=== PATIENT | female | born 1960 | race Caucasian/White ===

== ENCOUNTER 2019-10-31 07:30 | Inpatient (IN) ==
[2019-10-24 20:02] LABS: Basophils # (Auto) 0.1 K/mcL (0.0-0.3); Basophils % (Auto) 0.5 % (0.0-2.0); Eosinophils # (Auto) 0.2 K/mcL (0.0-0.7); Eosinophils % (Auto) 2.4 % (0.0-7.0); Granulocytes % (Auto) 65.8 % (38.0-78.0); Hematocrit 41.1 % (36.0-48.0); Hemoglobin 13.7 g/dL (12.0-15.0); Lymphocytes # (Auto) 2.6 K/mcL (1.5-4.8); Lymphocytes % (Auto) 25.8 % (15.5-49.0); Mean Cell Volume 89.3 fL (80.0-100.0); Mean Corpuscular HGB Conc 33.4 g/dL (31.0-36.0); Mean Platelet Volume 8.5 fL (7.4-10.4); Monocytes # (Auto) 0.5 K/mcL (0.1-0.9); Monocytes % (Auto) 5.5 % (1.0-12.0); Platelet Count 292 K/mcL (140-440); Red Cell Distribution Width 13.6 % (11.5-14.5); WBC 9.9 K/mcL (4.5-11.0)
[2019-10-24 20:23] LABS: Appearance,Urine CLEAR; Bilirubin,Urine NEG (NEG); Color,Urine STRAW; Glucose,Urine (UA) NEGATIVE (NEG); Ketones,Urine NEG (NEG); Leukocyte Esterase,Urine NEG /uL (NEG); Nitrate,Urine NEG (NEG); Protein,Urine NEG (NEG); Specific Gravity,Urine 1.006 (1.000-1.035); Urine Blood NEG mg/dL (<0.03); Urobilinogen,Urine NEG (NEG)
[2019-10-24 20:25] LABS: Blood Urea Nitrogen 11 mg/dl (6-20); Calcium 9.4 mg/dl (8.6-10.4); Carbon Dioxide 28 mmol/L (22-30); Chloride 98 mmol/L (96-108); Glomerular Filtration Rate 70; Glucose 119 mg/dL (70-105)
[2019-10-24 20:31] LABS: Estimated Average Glucose(eAG) 114 mg/dL; Hemoglobin A1C 5.6 % HGB (4.0-6.0)
[~2019-10-31 07:30] MED LIST: GABAPENTIN 300 MG CAPSULE PO SCH; ceFAZolin 2 GM in DEXTROSE 5% IN WATER 50 ML IV SCH; oxyCODONE 10 MG TAB.ER.12H PO SCH
[2019-10-31] MEDS ORDERED: IPRATROPIUM/ALBUTEROL 3 ML AMPUL.NEB NEB PRN ×2 (08:00→14:45)
[2019-10-31] MEDS ORDERED: SCOPOLAMINE 1 PATCH PATCH TOPICAL PRN (08:00)
[2019-10-31] MEDS: CELECOXIB 200 MG CAPSULE PO SCH (10:18)
[2019-10-31] MEDS ORDERED: KETAMINE 100 MG/ML ML IV ONE (13:40)
[2019-10-31] MEDS ORDERED: LIDOCAINE HCL/PF 100 MG/5 ML SYRINGE IV ONE (13:40)
[2019-10-31] MEDS ORDERED: fentaNYL 250 MCG/5 ML VIAL IV ONE (13:40)
[2019-10-31] MEDS ORDERED: DEXAMETHASONE 10 MG/ML VIAL IV ONE (13:40)
[2019-10-31] MEDS ORDERED: MIDAZOLAM 2 MG/2 ML VIAL IV ONE (13:40)
[2019-10-31] MEDS ORDERED: ROCURONIUM 10 MG/ML ML IV ONE (13:40)
[2019-10-31] MEDS ORDERED: GLYCOPYRROLATE 0.2 MG/ML VIAL IV ONE (13:40)
[2019-10-31] MEDS ORDERED: SUCCINYLCHOLINE 20 MG/ML ML IV ONE (13:40)
[2019-10-31] MEDS ORDERED: PROPOFOL 200 MG/20 ML VIAL IV ONE (13:40)
[2019-10-31] MEDS ORDERED: ONDANSETRON 4 MG/2 ML VIAL IV ONE (13:40)
[2019-10-31] MEDS ORDERED: TRANEXAMIC ACID 1,000 MG/10 ML VIAL IV ONE (13:40)
[2019-10-31] MEDS ORDERED: METOPROLOL TARTRATE 5 MG/5 ML VIAL IV ONE (13:40)
[2019-10-31] MEDS ORDERED: BUPIVACAINE W/EPI 0.5% 50 ML VIAL IJ ONE (14:06)
[2019-10-31] MEDS ORDERED: METHOCARBAMOL 1,000 MG/10 ML VIAL IV PRN (14:45)
[2019-10-31] MEDS ORDERED: ACETAMINOPHEN 1,000 MG/100 ML BOTTLE IV ONE (14:45)
[2019-10-31] MEDS ORDERED: FLUMAZENIL 0.1 MG/ML ML IV PRN (14:45)
[2019-10-31] MEDS ORDERED: ONDANSETRON 4 MG/2 ML VIAL IV PRN (14:45)
[2019-10-31] MEDS ORDERED: PROMETHAZINE 25 MG/ML VIAL IV PRN (14:45)
[2019-10-31] MEDS ORDERED: BENZOCAINE/MENTHOL 1 LOZENGE PO PRN ×2 (14:45→15:18)
[2019-10-31] MEDS ORDERED: LACTATED RINGERS 250 ML IV PRN (14:45)
[2019-10-31] MEDS ORDERED: MEPERIDINE 25 MG/ML SYRINGE IV PRN (14:45)
[2019-10-31] MEDS ORDERED: LACTATED RINGERS 1,000 ML IV SCH (14:45)
[2019-10-31] MEDS ORDERED: NALOXONE HCL 0.4 MG/ML VIAL IV PRN (14:45)
[2019-10-31] MEDS ORDERED: diphenhydrAMINE 50 MG/ML VIAL IV PRN (14:45)
[2019-10-31] MEDS ORDERED: POLYETHYLENE GLYCOL 3350 17 GM PACKET PO PRN (15:18)
[2019-10-31] MEDS ORDERED: MAGNESIUM HYDROXIDE 30 ML ORAL.SUSP PO PRN (15:18)
[2019-10-31] MEDS ORDERED: TRANEXAMIC ACID 1,000 MG/10 ML VIAL IV SCH (15:18)
[2019-10-31] MEDS ORDERED: BISACODYL 10 MG SUPP.RECT PR PRN (15:18)
[2019-10-31] MEDS ORDERED: HYDROmorphone 2 MG/ML VIAL IV PRN (15:18)
[2019-10-31] MEDS ORDERED: FLEETS ADULT ENEMA PR PRN (15:18)
--- NOTE | 2019-10-31 15:18 | Brief Operative Note ---
Date of procedure: 10/31/19 Pre-op diagnosis: Left shoulder severe DJD Post-op diagnosis: same Procedure: 1)Left total shoulder arthroplasty 2)biceps tenodesis Grafts/Implants: Yes (Luisnier Demetriceiciti 1 nucleus, 43x16 humeral head, 35 small glenoid) Anesthesia: GETA Findings: severe arthritis Complications: none Surgeon: Jacques Phillips Industrial Staff Nurse: Emerson Guzman Estimated blood loss (cc): 300 Specimens Removed/Pathology: none sent Condition: stable Disposition: PACU
[2019-10-31] MEDS: KETOROLAC 30 MG/ML VIAL IV PRN (15:52)
[2019-10-31] MEDS: fentaNYL 100 MCG/2 ML VIAL IV PRN ×3 (16:00→16:20)
--- NOTE | 2019-10-31 16:30 | XRay Report ---
CLINICAL INFORMATION: Post-Op Total Shoulder COMPARISON: None. FINDINGS: Left shoulder prostheses is anatomically aligned. No osseous abnormality. Soft tissue swelling seen as expected IMPRESSION: Shoulder prostheses is anatomically aligned. Interpreted and Authenticated by: Robert Parham 10/31/19
[2019-10-31] MEDS: 0.9 % SODIUM CHLORIDE 1,000 ML IV SCH (16:50)
[2019-10-31] MEDS: OMEPRAZOLE 20 MG CAPSULE PO SCH (17:12)
[2019-10-31] MEDS: ONDANSETRON 4 MG/2 ML VIAL IV PRN (19:13)
[2019-10-31] MEDS: GABAPENTIN 300 MG CAPSULE PO SCH (20:09)
[2019-10-31] MEDS: DOCUSATE SODIUM 100 MG CAPSULE PO SCH (20:09)
[2019-10-31] MEDS ORDERED: ASPIRIN 81 MG TAB.CHEW PO SCH (21:00)
[2019-10-31] MEDS ORDERED: amLODIPine 5 MG TABLET PO SCH (21:00)
[2019-10-31] MEDS ORDERED: UBIDECARENONE 200 MG PO SCH (21:00)
[2019-10-31] MEDS ORDERED: SENNOSIDES 1 TABLET PO SCH (21:00)
[2019-10-31] MEDS: COLESTIPOLL 1 GM TABLET PO SCH (21:16)
[2019-10-31] MEDS: ceFAZolin 1 GM VIAL IV SCH (21:16)
[2019-10-31] MEDS: 0.9 % SODIUM CHLORIDE 10 ML SYRINGE IV SCH (21:47)
[2019-10-31] MEDS: oxyCODONE/APAP 5/325MG TABLET PO PRN (23:43)
[2019-11-01] MEDS: oxyCODONE/APAP 5/325MG TABLET PO PRN (02:49)
[2019-11-01] MEDS: ONDANSETRON 4 MG/2 ML VIAL IV PRN (02:53)
[2019-11-01] MEDS: 0.9 % SODIUM CHLORIDE 1,000 ML IV SCH (02:53)
[2019-11-01] MEDS: KETOROLAC 30 MG/ML VIAL IV PRN ×2 (03:16→11:02)
[2019-11-01] MEDS: 0.9 % SODIUM CHLORIDE 10 ML SYRINGE IV SCH (06:03)
[2019-11-01] MEDS: ceFAZolin 1 GM VIAL IV SCH (06:03)
[2019-11-01] MEDS: OMEPRAZOLE 20 MG CAPSULE PO SCH (07:50)
--- NOTE | 2019-11-01 07:52 | Discharge Summary ---
Providers - Providers Patient information: Note initiated : 11/01/19 at 7:49 am Service Date, if different from initiated Date: [] Patient: Lamar Ludwig 59 y/o F admitted on 10/31/19 for Left Total Shoulder Arthroplasty . Chief Complaint: [] Discharge date: 11/01/19 Hospitalization Hospital Course: Pt was admitted for a L total shoulder arthroplasty. Pt underwent the procedure on the day of admission. Pt was transferred to the floor for IV pain meds, IV abx and PT. Pt will attend out-pt PT. F/u in 2 weeks. Discharge diagnosis: L [place] OA Exam - Exam Clean and dry: Yes Weight bearing status: none Ortho Discharge - TSA - Patient Instructions Diet: Regular Diet Activity: non weight bearing Total Shoulder Protocol: Leave immobilizer in place except for bathing and ROM. Abduction pillow. Continue to wear sling until seen by physician. Codman Pendulum : These exercises use momentum produced by your body to move your shoulder joint. Bend your knees and shift your weight to your front leg, then back, allowing your arm to swing in the same directions. Using the same technique, alternately shift your weight between your right and left legs, allowing your arm to swing from side to side. These exercises are also performed in counterclockwise and clockwise circular motions. Typically these exercises are performed several times per day, for a set number repetitions or minutes, such as 20 times in a row or 5 minutes at a time. Dressing Care: May shower in 2 days - Follow Up Plan Disposition: Home, Self-Care Prognosis: Good Rehab Potential: Good Overall status at discharge: patient is progressing back to baseline - Orders For Discharge Prescriptions: oxyCODONE/APAP [Percocet 5-325 mg] 1 - 2 tab PO Q4HP PRN #75 tab PRN Reason: Per Pain Protocol Prescription Printed Pending Studies Resuscitation Status Full Code Diet Consistent Carbohydrate Diet Start TueOct 31 1520 Amlodipine Besylate (Norvasc) 10 mg PO HS [facility] Last Admin: 10/31/19 20:09 Dose: 10 mg Documented by: KALLI Aspirin (Aspirin) 81 mg PO HS [facility] Last Admin: 10/31/19 20:09 Dose: 81 mg Documented by: KALLI Colestipol HCl (Colestid) 1 gm PO BID [facility] Last Admin: 10/31/19 21:16 Dose: 1 gm Documented by: KALLI Docusate Sodium (Colace) 100 mg PO BID [facility] Last Admin: 10/31/19 20:09 Dose: Not Given Documented by: KALLI Gabapentin (Neurontin) 300 mg PO TID [facility] Last Admin: 10/31/19 20:09 Dose: 300 mg Documented by: KALLI Sodium Chloride (Sodium Chloride 0.9%) 1,000 mls @ 100 mls/hr IV .Q10H [facility] Last Admin: 11/01/19 02:53 Dose: 100 mls/hr Documented by: Infusion: 11/01/19 02:50 Dose: 100 mls/hr Documented by: Admin: 10/31/19 16:50 Dose: 100 mls/hr Documented by: DALILA Ketorolac Tromethamine (Toradol) 30 mg IV Q6HP PRN; Protocol PRN Reason: Per Pain Protocol Stop: 11/02/19 15:21 Last Admin: 11/01/19 03:16 Dose: 30 mg Documented by: Admin: 10/31/19 15:52 Dose: 30 mg Documented by: DIANE Omeprazole (Prilosec) 20 mg PO BIDAC [facility] Last Admin: 10/31/19 17:12 Dose: 20 mg Documented by: DALILA Ondansetron HCl (Zofran) 4 mg IV Q4HP PRN; Protocol PRN Reason: Nausea And Vomiting Last Admin: 11/01/19 02:53 Dose: 4 mg Documented by: Admin: 10/31/19 19:13 Dose: 4 mg Documented by: KALLI Oxycodone/Acetaminophen (Percocet 5-325 Mg) 0 tab PO Q4HP PRN; Protocol PRN Reason: Per Pain Protocol Last Admin: 10/31/19 23:43 Dose: 1 tab Documented by: KALLI Senna (Senokot) 2 tab PO HS [facility] Last Admin: 10/31/19 20:09 Dose: Not Given Documented by: KALLI Sodium Chloride (Saline Flush) 10 ml IV Q8 [facility] Last Admin: 11/01/19 06:03 Dose: Not Given Documented by: Admin: 10/31/19 21:47 Dose: Not Given Documented by: KALLI Shift Summary 11/01/19 03:52 Shift Summary by Ofe De Anda Pt is A&Ox4. VSS on RA. Up to BR w/1 assist. Has not ambulated in still, but amb to/from BR several times. Voiding well. Dressing to left shoulder CDI. Immobilizer in place. CMS intact. Pt got Zofran x2 & had emesis x1 this AM. Pt got Percocet 5 mg (1 tab) last night around midnight, but d/t nausea/emesis, pt got PRN Toradol 30 mg this AM at 0315 (rating pain 3/10). IV to RFA w/NS @ 100 ml/hr. Will update with verbal report. Initialized on 11/01/19 03:52 - END OF NOTE
--- NOTE | 2019-11-01 08:26 | Operative Note ---
DATE OF OPERATION: 10/31/2019 PREOPERATIVE DIAGNOSIS: Left shoulder severe osteoarthritis. POSTOPERATIVE DIAGNOSIS: Left shoulder severe osteoarthritis. PROCEDURE PERFORMED: 1. Left total shoulder arthroplasty placing a Tornier Simplicity size 1 nucleus, a 43 x 16 humeral head component with a small 35 curvature CortiLoc glenoid. 2. Biceps tenodesis. SURGEON: Jacques Phillips MD PEDIATRIC IMMUNOLOGIST: Ken Guzman PA-C. This provider's expertise and technical skill were required throughout the case. The PA assisted with preoperative coordination, intraoperative retraction, wound closure, dressing and splint application, as well as postoperative documentation and care coordination. ANESTHESIA: General. DRAINS: None. SPECIMENS: None. COMPLICATIONS: None. DRAINS: None. BLOOD LOSS: 300 mL POSTOPERATIVE CONDITION: Stable. INDICATIONS FOR SURGERY: This is a 59-year-old female with a remote history of shoulder dislocation and continued pain. Radiographs showed advanced arthrosis. MRI showed an intact rotator cuff. FINDINGS AT SURGERY: She did have an intact rotator cuff. There was severe arthrosis. Post- implantation showed good component position and stability. PROCEDURE IN DETAIL: The patient had been seen in preoperative holding and the correct operative site had been marked. The patient was then taken to the operating room and general anesthesia induced. The patient was carefully positioned in the beach chair position and pressure points carefully padded. The operative shoulder and upper extremity were then carefully prepped and draped in normal sterile fashion and a timeout was performed verifying patient name, operative site, and plan. Ioban was used to cover all skin surfaces and then the standard deltopectoral incision was made with a scalpel through skin and subcutaneous tissue. Hemostasis was obtained with Bovie cautery. Careful blunt dissection was taken down onto the cephalic vein and then we dissected through the deltopectoral interval. IrriSept was irrigated. Blunt finger dissection was used to develop subdeltoid space and Bacon deltoid retractor placed. The lateral edge of the conjoint tendon was identified and blue handle retractor placed underneath. The biceps was identified and palpated. We then unroofed this with a 15 blade scalpel and then curved Hood scissors used to amputate the biceps tendon off the glenoid. A curved osteotome was used to make a lesser tuberosity osteotomy to detach our subscapularis and then a traction suture placed around the fragment. The humeral head was then dislocated out anteriorly. Capsule was released around the neck and then curved osteotome used to remove osteophytes. We then used a cut guide to make a humeral cut along the anatomic neck. Oscillating saw was used to make our cut and then pins were removed. We used the sizer to determine the nucleus size and then drilled the pin through. We then planed the reamer down on the pin until we had contacted bone circumferentially. We then drilled the central peg over the pin and then the cruciate punch was used leaving a cut protector in place with it. We then exposed the glenoid. The labrum was excised circumferentially. Capsule was carefully released circumferentially as well and then a sizer guide was used to identify the appropriate size and curvature. We then drilled our guide pin centrally and then reamed with the reamer until we had contacted bone circumferentially. A central peg was drilled and then we removed the guide pin and the peripheral peg drill guide was placed. We drilled our three peripheral pegs and then we opened the appropriate size glenoid component, irrigated the glenoid as IrriSept while cement was mixed. We then irrigated with saline, after a minute then used the syringe to inject the three peripheral peg holes to pressurize the cement. We then placed DBX around the central peg in the flutes and then this was impacted and held fully seated until cement had fully hardened. We then re-exposed the proximal humerus. We sized the appropriate humeral head component based off of the resected head and then this was placed onto the nucleus. The shoulder was reduced and we checked our posterior subluxation which was 50%. We then re-exposed and removed the nucleus and humeral head. The definitive implants were opened. We irrigated the proximal humerus with IrriSept and after a minute we pulse lavaged with saline and then impacted the nucleus until it was fully seated, then impacted the head onto the nucleus. The shoulder was reduced. IrriSept was irrigated, after a minute pulse lavaged with saline. Drill holes were made in the bicipital groove and then #2 FiberWire [id number] was used to repair the lesser tuberosity osteotomy in a [id number] stitch over top. A traction stitch was used with a free needle to pass through bone to further reinforce the repair and incorporate the biceps tendon to tenodese it. Proximal stump of the biceps was amputated. We then used #1 Vicryl running stitch for closing the deltopectoral interval. Final IrriSept irrigation was done, after a minute final pulse lavage, and then a 2-0 Monocryl for subcutaneous and rito for skin. Xeroform sterile dressings were applied. Arm was placed in the abductor immobilizer and the patient was awakened, extubated, and transferred to recovery in stable condition. [id number] Job ID: [id number] Doc ID: [id number] Jacques Phillips MD
[2019-11-01] MEDS ORDERED: HYDROCHLOROTHIAZIDE 12.5 MG CAPSULE PO SCH (09:00)
[2019-11-01] MEDS ORDERED: LACTOBACILLUS 1 CAPSULE PO SCH (09:00)
[2019-11-01] MEDS ORDERED: LOSARTAN 50 MG TABLET PO SCH (09:00)
[2019-11-01] MEDS ORDERED: LORATADINE 10 MG TABLET PO SCH (09:00)
[2019-11-01] MEDS ORDERED: GINKGO BILOBA LEAF EXTRACT 120 MG PO SCH (09:00)
[2019-11-01] MEDS ORDERED: NON FORMULARY MEDICATION 1 DOSE MISCELL (Potassium Gluconate [Potassium] 99 MG) PO SCH (09:00)
[2019-11-01] MEDS ORDERED: ALLOPURINOL 300 MG TABLET PO SCH (09:00)
[2019-11-01] MEDS: GABAPENTIN 300 MG CAPSULE PO SCH (09:15)
[2019-11-01] MEDS: DOCUSATE SODIUM 100 MG CAPSULE PO SCH (09:15)
[2019-11-01] MEDS ORDERED: FLU VACC QS2019-20(6MOS UP)/PF 60 MCG/0.5 ML SYRINGE IM ONE (10:00)
[2019-11-01] MEDS ORDERED: PNEUMOCOCCAL 23-VAL P-SAC VAC 0.5 ML SYRINGE IM ONE (10:15)
[2019-11-01] MEDS: COLESTIPOLL 1 GM TABLET PO SCH (10:46)
== END 2019-11-01 11:30 | disposition home or self-care (01) | DRG 483 ==
LOC: MEDSUR 09:30
PROVIDERS: ADMIT Orthopaedic Surgery; ATTEND Orthopaedic Surgery